=== PATIENT | female | born 1940 | race African-American/Black ===

== ENCOUNTER 2019-07-24 14:53 | Inpatient (IN) | payer MEDICARE ==
[~2019-07-24] VITALS: Ht 170.2 cm; Wt 73.5 kg
[2019-07-24] MEDS ORDERED: ONDANSETRON HCL 4MG/2ML INJ IV STA (15:14)
[2019-07-24] MEDS ORDERED: SODIUM CHLORIDE 0.9% 500 ML IV ONE (15:14)
[2019-07-24] MEDS ORDERED: DIAZEPAM 5 MG TABLET PO ONE (15:15)
[2019-07-24] MEDS ORDERED: MECLIZINE 25MG TABLET PO ONE (15:15)
[2019-07-24 15:51] LABS: CHLORIDE 109 mEq/L (98-107)
[2019-07-24 15:56] LABS: ETHANOL BLOOD < 10 mg/dL
[2019-07-24 16:00] LABS: CREATINE KINASE 56 IU/L (26-192)
[2019-07-24 16:03] LABS: BASOPHILS % 0.5 % (0.0-2.0); HEMATOCRIT. 35.6 % (36.0-48.0); HEMOGLOBIN. 11.4 g/dL (12.0-16.0); LYMPHOCYTES % 28.7 % (20.0-50.0); MEAN CORPUSCULAR HEMOGLOBIN 26.4 pg (28.0-32.0); MEAN CORPUSCULAR VOLUME 81.9 fL (81.0-99.0); MEAN PLATELET VOLUME 7.9 fl (7.4-10.4); NEUTROPHILS % 62.8 % (40.0-76.0); PLATELET 280 x1000/uL (130-400); RED BLOOD CELL COUNT 4.34 mill/uL (4.2-5.4); RED CELL DISTRIBUTION WIDTH 15.1 % (11.6-14.6)
[2019-07-24] MEDS ORDERED: DEXTROSE 50% WATER 50ML SYRINGE IV PRN (16:45)
[2019-07-24] MEDS ORDERED: CLONIDINE 0.1MG TABLET PO PRN (16:45)
[2019-07-24] MEDS ORDERED: ACETAMINOPHEN 650MG SUPP PR PRN (16:45)
[2019-07-24] MEDS ORDERED: LORAZEPAM 0.5MG TABLET PO PRN (16:45)
[2019-07-24] MEDS ORDERED: ONDANSETRON HCL 4MG/2ML INJ IV PRN (16:45)
[2019-07-24] MEDS ORDERED: HYDROCODONE/ACETAMINOPHEN 5/325MG TABLET PO PRN (16:45)
[2019-07-24] MEDS ORDERED: IPRATROPIUM/ALBUTEROL 0.5-3(2.5)MG/3ML NEB NEB PRN (16:45)
[2019-07-24] MEDS ORDERED: DIPHENHYDRAMINE 50MG/ML VIAL IV PRN (16:45)
[2019-07-24] MEDS ORDERED: ACETAMINOPHEN 325MG TABLET PO PRN (16:45)
[2019-07-24] MEDS ORDERED: MAGNESIUM/ALUMINUM HYDROXIDE/SIMETHICONE 30ML UDC PO PRN (16:45)
[2019-07-24] MEDS ORDERED: GUAIFENESIN 200MG/10ML SUGAR FREE UDC PO PRN (16:45)
[2019-07-24] MEDS ORDERED: DOCUSATE SODIUM 100MG CAPSULE PO PRN (16:45)
[2019-07-24] MEDS ORDERED: NA PHOS,M-B/NA PHOS,DI-BA ENEMA 118ML PR PRN (16:45)
[2019-07-24 21:10] VITALS: BP 132/62
[2019-07-24] MEDS: BLOOD SUGAR DIAGNOSTIC STRIP TEST SCH (22:27)
[2019-07-24] MEDS: INSULIN LISPRO 100 UNITS/ML SUBCUT SCH (22:30)
[2019-07-24] MEDS: DIAZEPAM 5 MG TABLET PO SCH (22:41)
[2019-07-24] MEDS: MECLIZINE 25MG TABLET PO SCH (22:41)
[2019-07-24] MEDS: SODIUM CHLORIDE 0.45% 1,000 ML IV SCH (22:42)
[2019-07-24] MEDS ORDERED: ENOXAPARIN 40MG/0.4ML SYR SUBCUT SCH (23:00)
[2019-07-24] MEDS ORDERED: LOVA20TA2 PO (23:50)
[2019-07-24] MEDS ORDERED: METF-416 PO (23:50)
[2019-07-24] MEDS ORDERED: GLICLAZIDE PO (23:50)
[2019-07-25] VITALS: BP 125/61
[2019-07-25] MEDS ORDERED: PNEUMOCOCCAL 23-VAL P-SAC VAC 0.5 ML IM ONE (01:45)
[2019-07-25 04:00] VITALS: BP 127/60
[2019-07-25] MEDS: MECLIZINE 25MG TABLET PO SCH ×2 (05:55→14:45)
[2019-07-25] MEDS: BLOOD SUGAR DIAGNOSTIC STRIP TEST SCH ×2 (06:38→13:02)
[2019-07-25 07:13] LABS: BASOPHILS % 0.5 % (0.0-2.0); EOSINOPHILS % 2.5 % (0.0-5.0); HEMATOCRIT. 33.4 % (36.0-48.0); HEMOGLOBIN. 10.5 g/dL (12.0-16.0); LYMPHOCYTES % 32.1 % (20.0-50.0); MEAN CORPUSCULAR HEMOGLOBIN 25.8 pg (28.0-32.0); MEAN CORPUSCULAR VOLUME 82.3 fL (81.0-99.0); MEAN PLATELET VOLUME 8.5 fl (7.4-10.4); MONOCYTES % 5.6 % (2.0-8.0); NEUTROPHILS % 59.3 % (40.0-76.0); PLATELET 270 x1000/uL (130-400); RED BLOOD CELL COUNT 4.06 mill/uL (4.2-5.4)
[2019-07-25 07:29] LABS: CHLORIDE 110 mEq/L (98-107)
[2019-07-25 07:48] LABS: LDL CHOLESTEROL 63 mg/dL (5-100)
[2019-07-25 07:49] LABS: HDL CHOLESTEROL 47 mg/dL (40-59)
[2019-07-25] MEDS: INSULIN LISPRO 100 UNITS/ML SUBCUT SCH ×2 (07:50→13:17)
[2019-07-25 07:51] LABS: T4 FREE 0.94 ng/dL (0.76-1.46)
[2019-07-25 08:22] VITALS: BP 110/62
[2019-07-25] MEDS ORDERED: ASPIRIN 81MG EC TABLET PO SCH (09:00)
[2019-07-25] MEDS: SODIUM CHLORIDE 0.45% 1,000 ML IV SCH (09:32)
[2019-07-25] MEDS: DIAZEPAM 5 MG TABLET PO SCH (11:39)
[2019-07-25 12:06] VITALS: BP 141/78
[2019-07-25 14:51] VITALS: BP 144/78
== END 2019-07-25 15:45 | disposition home or self-care (01) | DRG 149 ==
LOC: ER 14:57 → SUPCPDRO 16:17 → 6WST 16:35 → EDBEDREQTM 16:37 → EDBEDREQ 16:37 → ENRESERV 20:23
PROVIDERS: ADMIT Internal Medicine; ATTEND Internal Medicine
DX: H81.09 Meniere's disease, unspecified ear (principal); D64.9 Anemia, unspecified; E11.9 Type 2 diabetes mellitus without complications; E78.5 Hyperlipidemia, unspecified; E86.0 Dehydration; I10 Essential (primary) hypertension; Z88.8 Allergy status to other drugs, medicaments and biological substances; Z88.1 Allergy status to other antibiotic agents
CPT/HCPCS: 36415; 71045; 80061; 80320; 82550; 82962; 83036; 83880; 84439; 84443; 84484; 90732; 93005; 93970; 97162; 99285; J1650; J1815; J2405; J7040; J8597; G0480